=== PATIENT | female | born 1980 | race Caucasian/White ===

== ENCOUNTER 2017-02-11 00:46 | Emergency (ER) | payer BC ==
[~2017-02-11] VITALS: Ht 160 cm; Wt 109.1 kg
[~2017-02-11 00:46] MED LIST: AMOXICILLIN 50500 MG PO; NO HOME MEDICATIONS; NORCO 325 MG-51 TAB PO; TYLENOL #3 301 UDTAB PO
[2017-02-11 00:49] VITALS: BP 151/84; PULSE 110; TEMP 99.6
[2017-02-11] MEDS ORDERED: PEN-VEE K500 MG PO (02:00)
[2017-02-11] MEDS ORDERED: ULTRAM 50MG TAB50 MG PO (02:00)
== END 2017-02-11 02:20 | disposition home or self-care (01) ==
LOC: COL.ER 00:46
DX: J02.0 Streptococcal pharyngitis (principal)
CPT/HCPCS: J0561

== ENCOUNTER 2017-02-13 19:21 | Emergency (ER) | payer BC ==
[~2017-02-13] VITALS: Ht 160 cm; Wt 109.1 kg
[~2017-02-13 19:21] MED LIST changes: +PEN-VEE K500 MG PO; +ULTRAM 50MG TAB50 MG PO
[2017-02-13 19:32] VITALS: TEMP 98.8
[2017-02-13 19:58] LABS: BASO # 0.1 (0.0-0.2); BASO % 0.5 % (0.0-2.0); EOS # 0.2 (0.0-0.7); GRAN # 14.7 (1.4-6.5); GRAN % 81.1 % (42.2-75.2); LYMPH # 1.4 (1.2-3.4); LYMPH % 7.6 % (20.0-51.0); MEAN CELL VOLUME 66 fl (80.0-100.0); MEAN CORPUSCULAR HGB CONC 31 g/dl (33.0-37.0); MEAN PLATELET VOLUME 9.6 fl (7.4-10.4); MONO # 1.7 (0.1-0.6); MONO % 9.1 % (1.7-9.3); PLATELET COUNT 329 K/mm3 (130-400); RED BLOOD COUNT 4.89 M/mm3 (4.10-5.30); REDCELL DISTRIBUTION WIDTH-CV 18.5 % (11.5-14.5); WHITE BLOOD COUNT 18.2 K/mm3 (4.8-10.8)
[2017-02-13 19:59] LABS: HEMATOCRIT 32.1 % (37.0-47.0); HEMOGLOBIN 9.9 g/dl (12.5-16.0); MEAN CORPUSCULAR HEMOGLOBIN 20 pg (27.0-31.0)
[2017-02-13 20:10] LABS: ADJUSTED CALCIUM 9.6 mg/dL (8.4-10.2); ALBUMIN 3.8 gm/dL (3.5-5.0); BILIRUBIN,TOTAL 0.9 mg/dL (0.0-1.0); CALCIUM 9.4 mg/dL (8.4-10.2); CREATININE, serum 0.67 mg/dL (0.52-1.25); TOTAL PROTEIN 7.7 gm/dL (6.4-8.2)
[2017-02-13 20:56] LABS: PH 5 (5-8); URINE APPEARANCE Hazy; URINE BACTERIA Rare /hpf; URINE BILIRUBIN Negative (NEGATIVE); URINE BLOOD 3+ (NEGATIVE); URINE COLOR Yellow; URINE GLUCOSE Negative (NEGATIVE); URINE KETONE 1+ (NEGATIVE)
[2017-02-13] MEDS ORDERED: LEVAQUIN 750MG750 M1 PO (22:39)
[2017-02-13] MEDS ORDERED: NORCO 325 MG-51 TAB PO (22:39)
[2017-02-13 23:20] VITALS: BP 140/78; PULSE 89
== END 2017-02-14 00:53 | disposition home or self-care (01) ==
LOC: COL.ER 19:21
PROVIDERS: Emergency Medicine
DX: J18.9 Pneumonia, unspecified organism (principal); R00.2 Palpitations; R00.0 Tachycardia, unspecified
CPT/HCPCS: J1956; J7030; Q9967

== ENCOUNTER 2019-11-16 10:03 | Emergency (ER) | payer BC ==
[~2019-11-16] VITALS: Ht 160 cm; Wt 90.9 kg
[~2019-11-16 10:03] MED LIST changes: +LEVAQUIN 750MG750 M1 PO
[2019-11-16 10:13] VITALS: BP 130/77; TEMP 101.7
[2019-11-16] MEDS ORDERED: TAMIFLU 75MG75 MG PO (11:26)
[2019-11-16 11:32] VITALS: PULSE 91
== END 2019-11-16 11:32 | disposition home or self-care (01) ==
LOC: COL.ER 10:03
DX: J09.X2 Influenza due to identified novel influenza A virus with other respiratory manifestations (principal)